=== PATIENT | female | born 1995 | race Hispanic/Latino ===

== ENCOUNTER 2019-03-27 22:14 | Emergency (ER) | payer SELFPAY ==
[2019-03-27 22:16] VITALS: BP 111/66; PULSE 73; RESP 16; TEMP 36.8; O2SAT 100
[2019-03-27 22:42] LABS: Basophils Percent Auto 0.4 % (0.2-1.2); Eosinophils Absolute Auto 0.1 K/mm3 (0-0.3); Eosinophils Percent Auto 2.1 % (0-4.4); Hematocrit 36.8 % (37.0-47.0); Hemoglobin 11.9 g/dL (12.0-15.0); Immature Granulocyte Absolute 0.01 K/mm3 (0.00-0.031); Immature Granulocyte Percent A 0.1 % (0-0.5); Lymphocytes Percent Auto 40.5 % (18.3-44.2); Mean Corpuscular HGB Conc 32.3 g/dl (32-36); Mean Corpuscular Hemoglobin 32.2 pg (26-34); Mean Corpuscular Volume 99.5 fl (80-100); Mean Platelet Volume 10.1 fl (7.4-10.4); Monocytes Absolute Auto 0.7 K/mm3 (0.1-0.6); Monocytes Percent Auto 10.3 % (2.6-8.5); Neutrophils Absolute Auto 3.1 K/mm3 (1.3-6.7); Neutrophils Percent Auto 46.6 % (45.5-73.1); Platelet Count Result 283 k/mm3 (150-375); Red Cell Distribution Width 12.7 % (11.5-14.5); White Blood Count 6.7 K/mm3 (4.5-10.0)
[2019-03-27 22:55] LABS: Alanine Aminotransferase 12 U/L (4-35); Albumin Level 4.6 g/dL (3.5-5.1); Alkaline Phosphatase 105 U/L (38-126); Aspartate Amino Transferase 18 U/L (14-36); Bilirubin,Total 0.4 mg/dL (0.2-1.3); Blood Urea Nitrogen 10 mg/dL (7-17); Calcium 9.5 mg/dL (8.4-10.2); Carbon Dioxide 28 mmol/L (22-30); Chloride 98 mmol/L (98-107); Estimated CRCL calculation 122 ml/min; Estimated Glomerular Filt Rate > 60; Glucose 79 mg/dL (65-105); Lipase 87 U/L (23-300); Sodium 140 mmol/L (137-145)
--- NOTE | 2019-03-27 23:15 | ED.ABDPAIN ---
HPI - Abdominal Pain General Chief Complaint: Abdominal Pain Stated Complaint: abd pain, vomiting Time Seen by Provider: 03/27/19 23:11 History of Present Illness HPI narrative: A 23 y/o female presents to the ED with worsening intermittent ABD pain for the past 2 weeks. She states that it started as epigastric pain, then became generalized, and then yesterday it became only lower ABD but that it was much more severe. She reports associated decreased appetite and ABD bloating. She notes that she might of had a syncopal episode while she was in bed d/t the pain. She also notes that her period is not due until the or . She denies any chance of being . She also denies any vaginal discharge, vaginal bleeding, dysuria, hematuria, fevers, chills, or sweats. MD elicited complaint: abdominal pain Pertinent past history: none Onset (ago): week(s) (2 became more severe yesterday) Pain Consistency: intermittent (worsening) Location: diffuse, epigastric and other (lower) Associated symptoms: syncope (possible) and other (decreased appetite and ABD bloating) Related Data Allergies Allergy/AdvReac Type Severity Reaction Status Date / Time No Known Allergies Allergy Verified 03/27/19 22:15 Review of Systems Review of Systems: Narrative: CONSTITUTIONAL: Denies fever, chills, or sweats. Reports decreased appetite. GASTROINTESTINAL: Reports ABD pain and ABD bloating. GENITOURINARY: Denies dysuria, vaginal discharge, vaginal bleeding, or hematuria. NEUROLOGIC: Reports a possible syncopal episode. All systems reviewed & are unremarkable except as noted in HPI and below PMFSH Past Medical History Medical History (Updated 03/28/19 @ 01:57 by Melvin Green) Bronchitis History of pneumonia Surgical History Surgical History (Updated 03/28/19 @ 01:57 by Melvin Green) No history of previous surgery Social History Social History (Updated 03/28/19 @ 01:57 by Melvin Green) Smoking status: Never smoker Gender identity (if verbalized by the patient): Female Exam Narrative: Exam Narrative: GENERAL: Well-appearing, well-nourished, and in no acute distress. HEAD: Normocephalic, atraumatic. EYES: PERRLA and EOMI. ENT: Nares clear, no rhinorrhea or epistaxis. Mucous membranes moist. NECK: Supple. CHEST: Clear to auscultation. No respiratory distress. HEART: Regular rate and rhythm. No murmur heard. Normal peripheral pulses. ABDOMEN: Soft, umbilical tenderness with + rebound tenderness, nondistended, normal active bowel sounds. EXTREMITIES: Normal range of motion. No edema. SKIN: Warm, dry, no rash. NEURO: No focal deficits. Alert and oriented X3. Course Vital Signs Vital signs: Vital Signs Temperature 36.8 C 03/27/19 22:16 Pulse Rate 73 03/27/19 22:16 Respiratory Rate 16 03/27/19 22:16 Blood Pressure 111/66 03/27/19 22:16 Pulse Oximetry 100 03/27/19 22:16 Temperature 36.8 C 03/27/19 22:16 Pulse Rate 77 03/28/19 00:10 Respiratory Rate 18 03/28/19 00:10 Blood Pressure 122/77 03/28/19 00:10 Pulse Oximetry 98 03/28/19 00:10 MDM - Abdominal Pain MDM Narrative Medical decision making narrative: Patient presented for evaluation of lower abdominal pain without flank pain. Patient without leukocytosis. Mild anemia. Patient was found to have urinary tract infection on urinalysis. Patient without colicky flank pain, no history of nephrolithiasis. Do not feel we need to obtain a CT scan given vital signs are stable, no severe flank pain. Patient given first dose of antibiotics in the ER, will be discharged home with antiemetic and antibiotic. Differential Diagnosis Differential diagnosis: Likely abdominal pain, acute appendicitis, constipation, endometriosis and other (UTI, Pyelonephritis) Lab Data Result diagrams: 03/27/19 22:33 03/27/19 22:33 Labs: Lab Results 03/27/19 03/27/19 03/27/19 Range/Units 22:33 22:33 23:06 WBC 6.7 (4.5-10.0) K/mm3 RBC 3.70 L
[2019-03-27 23:19] LABS: Add Urine Microscopic? YES; Appearance Urine Cloudy (Clear); Bilirubin Urine Negative (Negative); Blood Urine 1+ (Negative); Color Urine Yellow (Yellow); Glucose Urine UA Negative (Negative); Ketones Urine Negative (Negative); Leukocyte Esterase Ur 1+ LEU/UL (Negative); Mucus Urine Few /lpf; Nitrate Urine Positive (Negative); Protein Urine Negative (Negative); RBC Urine 0-2 /hpf (0-2); Specific Grav Ur 1.014 (1.001-1.035); Squamous Epithelial Cell Urine Many /hpf (Few); Urobilinogen Urine Negative mg/dL (<2.0); WBC Urine 21-30 /hpf
[2019-03-27] MEDS: SODIUM CHLORIDE 0.9% IV 1,000 ML 999 ML IV CONT (23:34)
[2019-03-27 23:35] VITALS: BP 113/58; PULSE 72; RESP 18; O2SAT 99
[2019-03-27] MEDS: ONDANSETRON INJ 4 MG/2 ML VIAL IV PUSH (23:35)
[2019-03-27] MEDS: MORPHINE SULFATE 4 MG/ML INJ IV PUSH (23:35)
[2019-03-28 00:10] VITALS: BP 122/77; PULSE 77; RESP 18; O2SAT 98
== END 2019-03-28 00:11 | disposition home or self-care (01) ==
PROVIDERS: Emergency Provider Emergency Medicine; PCP Family Medicine
DX: N30.00 Acute cystitis without hematuria (principal)
CPT/HCPCS: 36415; 80053; 81001; 83690; 85025; 87077; 87086; 87088; 87186; 96365; 96375; 99284; J0131; J0696; J2270; J2405; J7030

== ENCOUNTER 2020-05-22 11:04 | Emergency (ER) | payer SELFPAY ==
[2020-05-22 11:21] VITALS: BP 124/77; PULSE 87; RESP 16; TEMP 36.9; O2SAT 99
--- NOTE | 2020-05-22 11:40 | ED.URI ---
HPI - URI/Sore Throat General Chief Complaint: Upper Respiratory Infection Stated Complaint: Sore Throat,Ear Pain Time Seen by Provider: 05/22/20 11:29 Source: patient and RN notes reviewed Mode of arrival: ambulatory Limitations: no limitations History of Present Illness HPI Narrative: Patient presents today complaining of a dry sore throat x3 to 4 days is worse this morning, headache and frontal sinus pressure, she now states this morning that she has bilateral ear pressure. Pain in the throat increases with swallowing. Denies fever, cough, congestion, rhinorrhea. She currently rates her pain 4/10 and has taken no medication for symptoms prior to arrival. MD elicited complaint: sore throat Related Data Home Medications Medication Instructions Recorded Confirmed No Home Medications 05/22/20 05/22/20 Allergies Allergy/AdvReac Type Severity Reaction Status Date / Time No Known Allergies Allergy Verified 05/22/20 11:12 Review of Systems Review of Systems: Narrative: CONSTITUTIONAL: Denies body aches, fever, chills, or sweats. EYES: Denies visual changes, redness, or discharge. ENT: Denies rhinorrhea, congestion. + Sore throat, ear pressure CARDIOVASCULAR: Denies chest pain, palpitations, or edema. RESPIRATORY: Denies cough or dyspnea. GASTROINTESTINAL: Denies abdominal pain, nausea, vomiting, or diarrhea. GENITOURINARY: Denies dysuria or hematuria. SKIN: Denies rash, itching, or wounds. MUSCULOSKELETAL: Denies back pain, joint pain, or myalgia. NEUROLOGIC: Denies numbness, tingling, or weakness. + Headache PSYCH: Denies depression or anxiety. PMFSH Past Medical History Medical History (Updated 05/22/20 @ 11:43 by Shantel Del Rosario, [facility], ) Bronchitis History of pneumonia Surgical History Surgical History (Updated 03/28/19 @ 01:57 by Melvin Green) No history of previous surgery Social History Social History (Updated 03/28/19 @ 01:57 by Melvin Green) Smoking status: Never smoker Gender identity (if verbalized by the patient): Female Comments At time of signature, I have reviewed and agree with nursing past medical, surgical, social and family history unless otherwise noted. Please see nursing chart for further information. There is no relevant family history pertinent to the presenting complaint Exam Narrative: Exam Narrative: GENERAL: Well-appearing, well-nourished, and in no acute distress. HEAD: Normocephalic, atraumatic. EYES: EOMI. No redness or drainage. Conjunctivae normal. ENT: Mucous membranes pink and moist. Nares edematous and mildly erythematous. No rhinorrhea. TMs normal bilaterally. Throat erythematous posteriorly with copious white postnasal drainage. No edema. Tonsils normal. Uvula midline. NECK: Normal AROM. Supple. No lymphadenopathy. CHEST: No respiratory distress. Clear to auscultation. HEART: Regular rate and rhythm. No murmur appreciated. Normal peripheral pulses. EXTREMITIES: Normal range of motion. No edema. SKIN: Warm, dry, no rash. Capillary refill normal. Normal skin turgor. NEURO: No focal deficits. Alert and oriented x3. Gait steady. PSYCH: Normal affect. No signs of depression or anxiety. Course Vital Signs Vital signs: Vital Signs Temperature 98.4 F 05/22/20 11:21 Pulse Rate 87 05/22/20 11:21 Respiratory Rate 16 05/22/20 11:21 Blood Pressure 124/77 05/22/20 11:21 Pulse Oximetry 99 05/22/20 11:21 Temperature 98.4 F 05/22/20 11:21 Pulse Rate 87 05/22/20 11:21 Respiratory Rate 16 05/22/20 11:21 Blood Pressure 124/77 05/22/20 11:21 Pulse Oximetry 99 05/22/20 11:21 Reviewed. Pt has been instructed to follow up with her PCP regarding her elevated blood pressure today. MDM - URI/Sore Throat Differential Diagnosis Differential diagnosis: Likely upper respiratory infection, otitis media, sinusitis, viral infection, pharyngitis and other (Tonsillitis, strep throat, rhinitis, seasonal allergies) Lab Data Labs: S
== END 2020-05-22 11:44 | disposition home or self-care (01) ==
PROVIDERS: Emergency Provider Nurse Practitioner; PCP Family Medicine
DX: J30.9 Allergic rhinitis, unspecified (principal); J02.9 Acute pharyngitis, unspecified
CPT/HCPCS: 87081; 87880; 99213; G0463

== ENCOUNTER 2022-05-11 13:47 | Emergency (ER) | payer SELFPAY ==
[2022-05-11 13:55] VITALS: BP 130/75; PULSE 97; RESP 16; TEMP 37.8; O2SAT 99
[2022-05-11] MEDS: ONDANSETRON HCL ODT 4 MG TABLET PO (14:19)
--- NOTE | 2022-05-11 14:28 | ED.ABDPAIN ---
HPI - Abdominal Pain General Chief Complaint: Nausea/Vomiting/Diarrhea Stated Complaint: n/v/d abd pain Source: patient and RN notes reviewed Mode of arrival: ambulatory Limitations: no limitations History of Present Illness HPI narrative: 26-year-old female presents concern for onset of abdominal pain, vomiting, chills that started at 2:30 a.m. this morning. She reports she has been trying to drink water. She reports also had some diarrhea. She denies known sick contacts. She reports her last menstrual period was at the end of March, she denies dysuria, frequency, urgency, back pain MD elicited complaint: abdominal pain Related Data Home Medications Medication Instructions Recorded Confirmed No Home Medications 05/22/20 05/11/22 Allergies Allergy/AdvReac Type Severity Reaction Status Date / Time No Known Allergies Allergy Verified 05/11/22 13:52 Review of Systems Review of Systems: CONSTITUTIONAL: Reports malaise, chills, fever. ENT: Denies rhinorrhea, congestion, sinus pain, otalgia or sore throat. CARDIOVASCULAR: Denies chest pain, palpitations, or edema. RESPIRATORY: Denies cough or dyspnea. GASTROINTESTINAL: Reports mid epigastric and lower abdominal pain, nausea, vomiting, diarrhea GENITOURINARY: Denies dysuria or hematuria. MUSCULOSKELETAL: Denies myalgia. NEUROLOGIC: Denies headache. All systems reviewed & are unremarkable except as noted in HPI and below PMFSH Past Medical History Medical History (Updated 05/11/22 @ 14:51 by Kinsey Gross NP) Bronchitis History of pneumonia Surgical History Surgical History (Updated 03/28/19 @ 01:57 by Melvin Green) No history of previous surgery Social History Social History (Updated 03/28/19 @ 01:57 by Melvin Green) Smoking status: Never smoker Gender identity (if verbalized by the patient): Female Comments At time of signature, agree with nursing past medical, surgical, social and family history. There is no relevant family history pertinent to the presenting complaint Exam Narrative: GENERAL: Well-appearing, well-nourished, and in no acute distress. HEAD: Normocephalic, atraumatic. EYES: PERRLA, conjunctivae clear, and EOMI. ENT: Nares clear, turbinates pink, no rhinorrhea or epistaxis. Mucous membranes moist. Oropharynx without edema, erythema, or lesions. Tonsils not enlarged and without exudate. NECK: Supple. No lymphadenopathy CHEST: Speaks in full sentences. No respiratory distress. HEART: Regular rate and rhythm. ABDOMEN: Soft, flat, nondistended. Epigastric, lower right and lower left quadrant tenderness. No pulsatile masses. Bowel sounds present in all four quadrants.No Supra public tenderness or distension. Good femoral pulses bilaterally. No hernia noted. No scars or surface trauma. SKIN: Warm, dry, no rash. NEURO: Alert and oriented x3. PSYCH: Normal mood and affect Course Course Emergency Course: Patient is aware of, understands and agrees to transfer to the emergency department. Patient agrees to proceed directly to the emergency department. Portions of this record may have been created with voice recognition software Level of Care: Express Care Visit Vital Signs Vital signs: Vital Signs Temperature 100.0 F H 05/11/22 13:55 Pulse Rate 97 05/11/22 13:55 Respiratory Rate 16 05/11/22 13:55 Blood Pressure 130/75 05/11/22 13:55 Pulse Oximetry 99 05/11/22 13:55 Oxygen Delivery Room Air 05/11/22 13:55 Temperature 100.0 F H 05/11/22 13:55 Pulse Rate 97 05/11/22 13:55 Respiratory Rate 16 05/11/22 13:55 Blood Pressure 130/75 05/11/22 13:55 Pulse Oximetry 99 05/11/22 13:55 Oxygen Delivery Room Air 05/11/22 13:55 Reviewed. Transfer Transfered to: Juan Ram[facility] Transfer rationale: Abdominal pain Accepting physician: Tahir Boss comments: Patient given Zofran prior to transfer MDM - Abdominal Pain MDM Narrative Medical decision making narrative: Exam findings or roxann
== END 2022-05-11 14:35 | disposition home or self-care (01) ==
PROVIDERS: Emergency Provider Nurse Practitioner
DX: R10.13 Epigastric pain (principal); R10.31 Right lower quadrant pain; R10.32 Left lower quadrant pain
CPT/HCPCS: 99213; A9270; G0463

== ENCOUNTER 2022-05-11 14:52 | Emergency (ER) | payer SELFPAY ==
--- NOTE | ~2022-05-11 | CT_ITS ---
EXAMINATION: CT abdomen pelvis w con DATE: 05/11/2022 16:17 INDICATION: Epigastric and mid and lower abdominal pain. Nausea, vomiting, diarrhea TECHNIQUE: Computed tomography (CT) of the abdomen and pelvis was performed with 100 CC Omnipaque 350 intravenous contrast. Automated exposure control and iterative reconstruction technique were employe d. Exam dose: 179.64 mGy-cm total exam DLP. COMPARISON: 12/25/2016 CT abdomen pelvis FINDINGS: The lung bases are clear. Normal heart size. No pericardial or pleural effusion. The liver, gallbladder, bile ducts, pancreas, pancreatic duct and spleen appear normal. Normal morphology of the adrenal glands. No renal mass lesion or urinary tract calculus or hydroureteronephrosis. Retroverted uterus. Prominent bilateral adnexal vessels. Involuting approximately 1.8 cm left corpus luteum cyst, bilateral ovarian cysts, measuring up to approximately 2.1 cm on the right. There are multiple small air-fluid levels without abnormal dilatation or bowel wall thickening, pneum atosis or intraperitoneal free air. No evidence of appendicitis. Normal caliber of the abdominal aorta. No intraperitoneal or retroperitoneal or pelvic mass lesion or adenopathy or ascites. Included skeletal structures are unremarkable. IMPRESSION: Approximately 1.8 cm involuting left corpus luteum cyst Bilateral ovarian cysts, measuring up to 2.1 cm in the right Prominent bilateral adnexal vessels Retroverted uterus Scattered small bowel air-fluid levels suggesting enteritis or mild adynamic ileus; no bowel obstruct ion is evident No evidence of appendicitis. Reviewed, dictated and finalized at [facility] Reviewed, dictated and finalized at [facility] IMPRESSION: Approximately 1.8 cm involuting left corpus luteum cyst Bilateral ovarian cysts, measuring up to 2.1 cm in the right Prominent bilateral adnexal vessels Retroverted uterus Scattered small bowel air-fluid levels suggesting enteritis or mild adynamic il eus; no bowel obstruction is evident No evidence of appendicitis.
[2022-05-11 15:02] VITALS: BP 118/68; PULSE 95; RESP 18; TEMP 37.4; O2SAT 99
--- NOTE | 2022-05-11 15:09 | ED.ABDPAIN ---
HPI - Abdominal Pain General Chief Complaint: Abdominal Pain Stated Complaint: abd pain/vomiting Time Seen by Provider: 05/11/22 15:08 Source: patient and family Mode of arrival: ambulatory Limitations: no limitations History of Present Illness HPI narrative: 26 years old female came to the emergency room by private car complaining of nausea, vomiting and diarrhea since 2 AM. Patient reports vomiting at least 15 time and diarrhea at least 6 time. Her boyfriend had similar symptoms few days ago. Also complaining of diffuse abdominal pain she denies any respiratory symptoms. Related Data Allergies Allergy/AdvReac Type Severity Reaction Status Date / Time No Known Allergies Allergy Verified 05/11/22 14:53 Review of Systems Review of Systems: All systems reviewed & are unremarkable except as noted in HPI and below PMFSH Past Medical History Medical History Bronchitis History of pneumonia Surgical History Surgical History No history of previous surgery Social History Social History Smoking status: Never smoker Gender identity (if verbalized by the patient): Female Exam Narrative: General appearance: Well-developed, well-nourished Skin: Normal color Head: Normocephalic, nontraumatic Eyes: Clear conjunctiva ENT: Oropharynx normal, ears normal, nose normal Neck: Supple, nontender Chest and respiratory: Airway patent, no respiratory distress, no accessory muscle use Heart: Regular rate/rhythm Abdomen: Firm, diffuse tenderness, hyperactive bowel sounds Vascular: Normal peripheral pulses, normal capillary refill. Musculoskeletal: Normal range of motion, nontender back Neurologic: Alert and oriented ?3, MAIL ROOM CLERK is normal as tested, no gross motor deficit Course Vital Signs Vital signs: Vital Signs Temperature 37.4 C 05/11/22 15:02 Pulse Rate 95 05/11/22 15:02 Respiratory Rate 18 05/11/22 15:02 Blood Pressure 118/68 05/11/22 15:02 Pulse Oximetry 99 05/11/22 15:02 Temperature 37.4 C 05/11/22 15:02 Pulse Rate 95 05/11/22 15:02 Respiratory Rate 18 05/11/22 15:02 Blood Pressure 118/68 05/11/22 15:02 Pulse Oximetry 99 05/11/22 15:02 MDM - Abdominal Pain MDM Narrative Medical decision making narrative: Patient presents with nausea, vomiting and diarrhea and intermittent abdominal pain Viral gastroenteritis is my concern. Work-up includes CBC, CMP, lipase, UA and CT abdomen pelvis with IV contrast ordered IV fluid of 2 L of normal saline, Zofran 4 mg IV ordered Work-up today showed normal white count, normal electrolytes, no dehydration, CT abdomen and pelvis showed finding consistent with gastroenteritis. Differential Diagnosis Differential diagnosis: Likely acute appendicitis and other (Electrolyte imbalance, dehydration, appendicitis, cholecystitis) Lab Data 05/11/22 15:33 05/11/22 15:33 Labs: Lab Results 05/11/22 05/11/22 05/11/22 Range/Units 15:33 15:33 15:40 WBC 7.1 (4.5-10.0) K/mm3 RBC 4.04 L (4.2-5.4) M/mm3 Hgb 13.3 (12.0-15.0) g/dL Hct 39.2 (37.0-47.0) % MCV 97.0 (80-100) fl MCH 32.9 (26-34) pg MCHC 33.9 (32-36) g/dl RDW 12.2 (11.5-14.5) % Plt Count 261 (150-375) k/mm3 MPV 9.8 (7.4-10.4) fl Immature Gran % (Auto) 0.3 (0-0.5) % Neut % (Auto) 85.4 H (45.5-73.1) % Lymph % (Auto) 9.9 L (18.3-44.2) % Anderson % (Auto) 3.9 (2.6-8.5) % Eos % (Auto) 0.4 (0-4.4) % Baso % (Auto) 0.1 L (0.2-1.2) % Lymph # (Auto) 0.70 L (0.9-
[2022-05-11 15:38] LABS: Basophils Percent Auto 0.1 % (0.2-1.2); Eosinophils Percent Auto 0.4 % (0-4.4); Hematocrit 39.2 % (37.0-47.0); Hemoglobin 13.3 g/dL (12.0-15.0); Immature Granulocyte Absolute 0.02 K/mm3 (0.00-0.031); Immature Granulocyte Percent A 0.3 % (0-0.5); Lymphocytes Percent Auto 9.9 % (18.3-44.2); Mean Corpuscular HGB Conc 33.9 g/dl (32-36); Mean Corpuscular Hemoglobin 32.9 pg (26-34); Mean Platelet Volume 9.8 fl (7.4-10.4); Monocytes Absolute Auto 0.3 K/mm3 (0.1-0.6); Monocytes Percent Auto 3.9 % (2.6-8.5); Neutrophils Absolute Auto 6.1 K/mm3 (1.3-6.7); Neutrophils Percent Auto 85.4 % (45.5-73.1); Platelet Count Result 261 k/mm3 (150-375); Red Blood Count 4.04 M/mm3 (4.2-5.4); Red Cell Distribution Width 12.2 % (11.5-14.5); White Blood Count 7.1 K/mm3 (4.5-10.0)
[2022-05-11 15:48] LABS: Alanine Aminotransferase 18 U/L (6-35); Albumin Level 4.7 g/dL (3.5-5.1); Alkaline Phosphatase 76 U/L (38-126); Anion Gap 6 mmol/L (8-16); Aspartate Amino Transferase 23 U/L (14-36); Bilirubin,Total 2.7 mg/dL (0.2-1.3); Blood Urea Nitrogen 13 mg/dL (7-17); Calcium 8.7 mg/dL (8.4-10.2); Carbon Dioxide 25 mmol/L (22-30); Chloride 107 mmol/L (98-107); Estimated CRCL calculation 132 ml/min; Estimated Glomerular Filt Rate > 60; Glucose 100 mg/dL (65-110); Lipase 34 U/L (23-300); Potassium 3.9 mmol/L (3.4-5.0); Sodium 138 mmol/L (137-145)
[2022-05-11 15:52] LABS: Appearance Urine Cloudy (Clear); Bacteria Urine 1+ /hpf; Bilirubin Urine Negative (Negative); Blood Urine Negative (Negative); Color Urine Dark Yellow (Yellow); Glucose Urine UA Negative (Negative); Ketones Urine 1+ mg/dL (Negative); Leukocyte Esterase Ur 1+ LEU/UL (Negative); Nitrate Urine Negative (Negative); Non Pathogenic Casts 0-2; Protein Urine 1+ mg/dL (Negative); RBC Urine 0-2 /hpf (0-2); Specific Grav Ur 1.029 (1.001-1.035); Squamous Epithelial Cell Urine Moderate /hpf (Few)
[2022-05-11 15:53] LABS: Add Urine Microscopic? YES
[2022-05-11] MEDS: SODIUM CHLORIDE 0.9% IV 1,000 ML 999 ML IV CONT ×2 (16:01→16:40)
[2022-05-11 18:45] VITALS: BP 118/74; PULSE 84; RESP 16; O2SAT 100
== END 2022-05-11 19:00 | disposition home or self-care (01) ==
PROVIDERS: Emergency Provider Emergency Medicine
DX: K52.9 Noninfective gastroenteritis and colitis, unspecified (principal)
CPT/HCPCS: 36415; 74177; 80053; 81001; 81025; 83690; 85025; 87077; 87086; 87186; 96360; 99284; J7030; Q9967

== ENCOUNTER 2022-12-31 12:29 | Emergency (ER) | payer SELFPAY ==
[2022-12-31 12:42] VITALS: BP 131/84; PULSE 110; RESP 16; TEMP 37.7; O2SAT 100
--- NOTE | 2022-12-31 13:04 | ED.URI ---
HPI - URI/Sore Throat General Chief Complaint: Upper Respiratory Infection Stated Complaint: Sore Throat Time Seen by Provider: 12/31/22 13:04 Source: patient, RN notes reviewed and old records reviewed Mode of arrival: ambulatory Limitations: no limitations History of Present Illness HPI Narrative: 27-year-old female presents to the [facility] with complaints of a sore throat that started on Friday. States yesterday she felt feverish. Has taken DayQuil and NyQuil Related Data Home Medications Medication Instructions Recorded Confirmed No Home Medications 12/31/22 12/31/22 Allergies Allergy/AdvReac Type Severity Reaction Status Date / Time No Known Allergies Allergy Verified 12/31/22 12:34 Review of Systems Review of Systems: All systems reviewed & are unremarkable except as noted in HPI and below Constitutional: Constitutional: Reports no additional constitutional complaints Eyes: Eyes: Reports no additional eye complaints ENT: Reports as per HPI and Reports sore throat Cardiovascular: Cardiovascular: Reports no additional cardiovascular complaints, Denies chest pain and Denies dyspnea Respiratory: Respiratory: Reports no additional respiratory complaints, Denies chest congestion, Denies cough and Denies dyspnea Gastrointestinal: Gastrointestinal: Reports no additional gastrointestinal complaints, Denies abdominal pain, Denies nausea and Denies vomiting Musculoskeletal: Musculoskeletal: Reports no additional musculoskeletal complaints Integumentary/Breasts: Skin/Breast: Reports system reviewed and no additional complaints, except as docu Neurologic: Reports system reviewed and no additional complaints, except as documented Psychiatric: Psychiatric: Reports no additional psychiatric complaints Allergic/Immunologic: Allergic/Immunologic: Reports no additional allergic/immunologic complaints PMFSH Past Medical History Medical History Bronchitis History of pneumonia Surgical History Surgical History No history of previous surgery Social History Social History Smoking status: Never smoker Gender identity (if verbalized by the patient): Female Comments At the time of my signature, I reviewed and agree with the nursing past medical, surgical, social, and family history. There is no relevant family history pertinent to the patient complaint. Exam Const: General: cooperative, healthy appearing, comfortable, no acute distress, well developed, alert and well nourished Nutritional Appearance: well nourished Orientation/consciousness: patient oriented x3 Limitations: no limitations HENMT: Head: normal to inspection Ears: hearing grossly normal bilaterally, external ears normal, TM's normal bilaterally, EAC's normal, mastoids normal and no periauricular adenopathy Face/Nose/Sinus: Normal external nose present, Normal nares present, Normal nasal mucous membranes and turbinates present, normal facial exam and face symmetric Face and sinus: normal facial exam and face symmetric Mouth: Yes Normal oral and palatal mucosa present, Yes lip normal and Yes moist mucous membranes Throat: posterior oropharynx normal, uvula midline and postnasal drainage Eyes: General: appearance normal, both eyes and all related structures Alignment and Position: alignment normal Periorbital: periorbital findings normal Pupils: Equal, round and reactive pupils present EOM: EOMs intact bilaterally Neck: Neck: normal visual inspection, full ROM, no lymphadenopathy and no meningeal signs Chest: Chest palpation & inspection: normal inspection of the chest Resp: Effort & Inspection: normal respiratory effort and able to speak in complete sentences Auscultation: clear to auscultation bilaterally, no crackles, no rales, no rhonchi and no wheezes Cardio: Rate: re
--- NOTE | 2023-01-02 12:10 | PC.NURSE ---
final throat culture reviewed. no group a strep isolated . no change in pt plan of care
== END 2022-12-31 13:22 | disposition home or self-care (01) ==
PROVIDERS: Emergency Provider Nurse Practitioner
DX: J02.9 Acute pharyngitis, unspecified (principal); J06.9 Acute upper respiratory infection, unspecified; Z20.822 Contact with and (suspected) exposure to COVID-19
CPT/HCPCS: 87081; 87426; 87880; 99213; C9803; G0463

== ENCOUNTER 2024-02-29 02:32 | Emergency (ER) | payer SELFPAY ==
[2024-02-29 02:36] VITALS: BP 148/96; PULSE 89; RESP 18; TEMP 36.5; O2SAT 99
--- NOTE | 2024-02-29 08:23 | PC.NURSE ---
Pt called back to get repeat vitals and did not answer x2
--- OUTSIDE RECORDS SUMMARY | 2024-03-07 03:26 | XMS_ITS | Encounter Summary ---
Author Organization [facility] Address [facility] [place] [address] [place] [address] Care Team Providers Care Travertine Installer Name Role Phone Unavailable Primary Care Provider Unavailabl e Encounter Details Date Type Department Care Team (Late st Contact Info) Description 11/26/2005 Emergency [facility] [place] [address] , Amber Torres MD Social History Tobacco Use Types Packs/Day Years Used Date Smoking Tobacco: Never Assessed Comments Unknown Sex and Gender Information Value Date Recorded Sex Assigned at Not on file Legal Sex Female 5:54 PM CDT Gender Identity Not on file Sexual Orientation Not on file documented as of this encounter Plan of Treatment Not on file documented as of this encounter Visit Diagnoses Not on filedocumented in this encounter
--- OUTSIDE RECORDS SUMMARY | 2024-03-07 03:26 | XMS_ITS | Encounter Summary ---
Author Organization [facility] Address [facility] [facility] [place] [address] [place] [address] Care Team Providers Care Assistant Statistician Name Role Phone Unavailable Primary Care Provider Unavailabl e Reason for Visit * Reason Comments NVD Pt states NVD, heada [place], and sore throat since friday. Encounter Details Date Type Department Care Team (Late st Contact Info) Description 12/24/2016 6:53 PM STRIP DEBURRER - 12/24/2016 10:26 PM STRIP DEBURRER Emergency [facility] [place] [address] NVD (Pt states NVD, headache, and sore throat since friday. ) Discharge Disposition: Left Against Medical Advice Social History Tobacco Use Types Packs/Day Years Used Date Smoking Tobacco: Never Assessed Comments Unknown Sex and Gender Information Value Date Recorded Sex Assigned at Not on file Legal Sex Female 5:54 PM CDT Gender Identity Not on file Sexual Orientation Not on file documented as of this encounter Last Filed Vital Signs Vital Sign Reading Time Taken Comments Blood Pressure 111/80 12/24/2016 6:31 PM STRIP DEBURRER Pulse 76 12/24/2016 6:31 PM STRIP DEBURRER Temperature 37.5 ??C (99.5 ??F) 12/24/2016 6:31 PM CS T Respiratory Rate 18 12/24/2016 6:31 PM STRIP DEBURRER Oxygen Saturation 99% 12/24/2016 6:31 PM STRIP DEBURRER Inhaled Oxygen Concentration - - Weight 62.7 kg (138 lb 3.7 oz) 12/24/2016 6:31 P M STRIP DEBURRER Height 167.6 cm (5' 6 ) 12/24/2016 6:31 PM STRIP DEBURRER Body Mass Index 22.31 12/24/2016 6:31 PM STRIP DEBURRER documented in this encounter ED Notes * Kacey Fishman - 12/24/2016 10:17 PM CST Patient left without being seen. P DEBURRER documented in this encounter Plan of Treatment Not on file documented as of this encounter Visit Diagnoses Not on filedocumented in this encounter
--- OUTSIDE RECORDS SUMMARY | 2024-03-07 03:26 | XMS_ITS | Clinical Summary ---
Author Organization [facility] Address [address] [place] [address]. 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 Pulse 76 12/24/2016 6:31 PM AFTER SCHOOL PROGRAM TEACHER Temperature 37.5 ??C (99.5 ??F) 12/24/2016 6:31 PM CS T Respiratory Rate 18 12/24/2016 6:31 PM AFTER SCHOOL PROGRAM TEACHER Oxygen Saturation 99% 12/24/2016 6:31 PM AFTER SCHOOL PROGRAM TEACHER Inhaled Oxygen Concentration - - Weight 62.7 kg (138 lb 3.7 oz) 12/24/2016 6:31 P M AFTER SCHOOL PROGRAM TEACHER Height 167.6 cm (5' 6 ) 12/24/2016 6:31 PM AFTER SCHOOL PROGRAM TEACHER Body Mass Index 22.31 12/24/2016 6:31 PM AFTER SCHOOL PROGRAM TEACHER Plan of Treatment Health Maintenance Due Date Last Done Comments Cervical Cancer Screening Pa p Smear (Age 21 to 29) Every 3 Years 1996 Cervical Cancer Screening 1996 Annual Physical 12/18/1999 Hepatitis C 2014 DTaP, Tdap and Td Vaccines ( 1 - Tdap) 12/18/2015 Hepatitis B Vaccines (1 of 3 - 19+ 3-dose series) 12/18/2015 COVID-19 Vaccine (2023-2 5 season) 2023 Influenza Adult (#1) 2023 HPV Vaccines Aged Out No longer eligi ble based on patient's age to complete this topic Meningococcal Vaccine Aged Out No chiara car eligible based on patient's age to complete this topic Pneumococcal Vaccine: Pediat rics (0 to 5 Years) and At-Risk Patients (6 to 64 Years) Aged Out No longer eligible b ased on patient's age to complete this topic RSV Immunizations Under 20 Months Aged Out No longer eligible based on patient's age to complete this topic
--- OUTSIDE RECORDS SUMMARY | 2024-03-07 06:02 | XMS_ITS | Encounter Summary ---
Author Organization [facility] Address [facility] [facility] [address] [place] [address] Care Team Providers Care Educational Program Director Name Role Phone Unavailable Primary Care Provider Unavailabl e Encounter Details Date Type Department Care Team (Late st Contact Info) Description 11/26/2005 Emergency [facility] [place] [address] , Amber Torres MD Social History Tobacco [...]
--- OUTSIDE RECORDS SUMMARY | 2024-03-07 06:02 | XMS_ITS | Encounter Summary ---
Author Organization [facility] Address [facility] [facility] [place] [address] [place] [address] Care Team Providers Care Mammal Keeper Name Role Phone Unavailable Primary Care Provider Unavailabl e Reason for Visit * Reason Comments NVD Pt states NVD, heada kash[place], and sore throat since friday. 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 - 12/24/2016 10:26 PM METAL FABRICATOR APPRENTICE Emergency [facility] [place] [address] NVD (Pt states NVD, headache, [...] Comments Blood Pressure 111/80 12/24/2016 6:31 PM METAL FABRICATOR APPRENTICE Pulse 76 12/24/2016 6:31 PM METAL FABRICATOR APPRENTICE Temperature 37.5 ??C (99.5 ??F) 12/24/2016 6:31 PM CS T Respiratory Rate 18 12/24/2016 6:31 PM METAL FABRICATOR APPRENTICE Oxygen Saturation 99% 12/24/2016 6:31 PM METAL FABRICATOR APPRENTICE Inhaled Oxygen Concentration - - Weight 62.7 kg (138 lb 3.7 oz) 12/24/2016 6:31 P M METAL FABRICATOR APPRENTICE Height 167.6 cm (5' 6 ) 12/24/2016 6:31 PM METAL FABRICATOR APPRENTICE Body Mass Index 22.31 12/24/2016 6:31 PM METAL FABRICATOR APPRENTICE documented in this encounter ED Notes * Kacey Fishman - 12/24/2016 10:17 PM CST Patient left without being seen. L FABRICATOR APPRENTICE documented in this encounter Plan of Treatment Not on file documented as of this encounter Visit Diagnoses Not on filedocumented in this encounter
--- OUTSIDE RECORDS SUMMARY | 2024-03-07 06:02 | XMS_ITS | Clinical Summary ---
Author Organization [facility] Address [address] [place] [address]. [place] [address] [place] [address] Care Team Providers Care Tip Inserter Name Role Phone Unavailable Primary Care Provider [...] Comments Blood Pressure 111/80 12/24/2016 6:31 PM CYTOMETRY TECHNOLOGIST Pulse 76 12/24/2016 6:31 PM CYTOMETRY TECHNOLOGIST Temperature 37.5 ??C (99.5 ??F) 12/24/2016 6:31 PM CS T Respiratory Rate 18 12/24/2016 6:31 PM CYTOMETRY TECHNOLOGIST Oxygen Saturation 99% 12/24/2016 6:31 PM CYTOMETRY TECHNOLOGIST Inhaled Oxygen Concentration - - Weight 62.7 kg (138 lb 3.7 oz) 12/24/2016 6:31 P M CYTOMETRY TECHNOLOGIST Height 167.6 cm (5' 6 ) 12/24/2016 6:31 PM CYTOMETRY TECHNOLOGIST Body Mass Index 22.31 12/24/2016 6:31 PM CYTOMETRY TECHNOLOGIST Plan of Treatment Health Maintenance Due Date [...]
== END 2024-02-29 08:53 | disposition left against medical advice (07) ==
LOC: ANHED 08:32
DX: Z53.21 Procedure and treatment not carried out due to patient leaving prior to being seen by health care provider (principal)
CPT/HCPCS: 99199